=== PATIENT | female | born 1960 | race Caucasian/White ===

== ENCOUNTER 2019-08-29 07:13 | Outpatient (CLI) | payer OTHER, SELFPAY ==
--- NOTE | ~2019-08-29 | MM_ITS ---
EXAMINATION: MM screening [facility] BI w cecilia HISTORY: Screening mammogram TECHNIQUE: Craniocaudal and mediolateral oblique 3-D tomosynthesis images were obtained and synthetic 2-D images were generated. CAD analysis was submitted and interpreted. COMPARISON: Comparison to multiple prior studies sequentially, with oldest reviewed study dated 06/17. BREAST PARENCHYMAL COMPOSITION: There are scattered areas of fibroglandular density. FINDINGS: There is no evidence of suspicious mass, calcification, or architectural distortion to sugg est malignancy in either breast. There has been no suspicious interval change. IMPRESSION: 1. No mammographic evidence of malignancy. 2. Recommend routine screening mammography in one year. BI-RADS Category 1: Negative Reviewed, dictated and finalized at location A.
== END 2019-08-29 07:14 | disposition home or self-care (01) ==
LOC: ANHIMG 07:18
PROVIDERS: PCP Family Medicine Adolescent Medicine; Visit Provider Obstetrics & Gynecology
DX: Z12.31 Encounter for screening mammogram for malignant neoplasm of breast (principal)
CPT/HCPCS: 77063; 77067

== ENCOUNTER 2020-08-14 08:27 | Outpatient (CLI) | payer OTHER, SELFPAY ==
[2020-08-14 09:13] LABS: Alanine Aminotransferase 27 U/L (4-35); Albumin Level 4.3 g/dL (3.5-5.1); Alkaline Phosphatase 73 U/L (38-126); Anion Gap 6 mmol/L (8-16); Aspartate Amino Transferase 30 U/L (14-36); Bilirubin,Total 0.6 mg/dL (0.2-1.3); Blood Urea Nitrogen 17 mg/dL (7-17); Carbon Dioxide 31 mmol/L (22-30); Chloride 103 mmol/L (98-107); Cholesterol 179 mg/dL (0-200); Estimated Glomerular Filt Rate > 60; Glucose 95 mg/dL (65-105); HDL Direct 60 mg/dL; Potassium 4.4 mmol/L (3.4-5.0); Sodium 140 mmol/L (137-145); Triglycerides 155 mg/dL (<150)
[2020-08-14 09:24] LABS: LDL Cholesterol Direct 72 mg/dL
== END 2020-08-14 08:28 | disposition home or self-care (01) ==
PROVIDERS: PCP Family Medicine Adolescent Medicine; Visit Provider Physician Assistant
DX: Z13.220 Encounter for screening for lipoid disorders (principal); Z13.228 Encounter for screening for other metabolic disorders
CPT/HCPCS: 36415; 80053; 80061

== ENCOUNTER 2020-10-26 08:09 | Outpatient (CLI) | payer OTHER, SELFPAY ==
--- NOTE | ~2020-10-26 | MM_ITS ---
EXAMINATION: MM screening [facility] BI w cecilia HISTORY: Screening TECHNIQUE: Craniocaudal and mediolateral oblique 3-D tomosynthesis images were obtained and synthetic 2-D images were generated. CAD analysis was submitted and interpreted. COMPARISON: Comparison to multiple prior studies sequentially, with oldest reviewed study dated 08/16. BREAST PARENCHYMAL COMPOSITION: The breasts are almost entirely fatty. FINDINGS: There is no evidence of suspicious mass, calcification, or architectural distortion to sugg est malignancy in either breast. There has been no suspicious interval change. IMPRESSION: 1. No mammographic evidence of malignancy. 2. Recommend routine screening mammography in one year. BI-RADS Category 1: Negative Reviewed, dictated and finalized at location A.
--- NOTE | ~2020-10-26 | DEXA_ITS ---
Bone Density Report Name: Rocio Stewart Age: 59 Sex: Female Ethnicity: White Date of : 1960 Indication: postmenopausal; inflammatory bowel disease; prior fracture; hysterectomy; Referring Provider: Timi Tee Study: Bone densitometry was performed. Exam Date: October 26, 2020 Accession number: [id number] Bone Density: Region BMD T-score Z-score Classification AP Spine (L1-L4) 0.969 -0.7 0.8 Normal Femoral Neck (Left) 0.719 -1.2 0.1 Osteopenia Total Hip (Left) 0.938 0.0 1.0 Normal Total Hip Bilateral Avg 0.900 -0.3 0.7 Normal Femoral Neck (Right) 0.711 -1.2 0.1 Osteopenia Total Hip (Right) 0.861 -0.7 0.3 Normal World Health Organization criteria for BMD impression classify patients as: Normal (T-score at or above -1.0), Osteopenia (T-score between -1.0 and -2.5), or Osteoporosis (T-score at or below -2.5). 10-year Fracture Risk(1): Major Osteoporotic Fracture 12% Hip Fracture 0.8% Reported Risk Factors: [place] (), Neck BMD=0.711, BMI=33.9, previous fracture (1) FRAX(R) Version 3.08. Fracture probability calculated for an untreated patient. Fracture probability may be lower if the patient has received treatment. Previous Exams: Region Exam Age BMD T-score BMD Change BMD Change Date g/cm2 vs Baseline vs Previous AP Spine(L1-L4) 10/26/2020 59 0.969 -0.7 -0.118(-10.9%) -0.049(-4.8%)* 04/21/2018 57 1.019 -0.3 -0.069(-6.3%)# -0.069(-6.3%)# 08/16/2013 52 1.088 0.4 Total Hip(Left) 10/26/2020 59 0.938 0.0 -0.097(-9.4%)# -0.008(-0.8%) 04/21/2018 57 0.946 0.0 -0.089(-8.6%)# -0.089(-8.6%)# 08/16/2013 52 1.035 0.8 Total Hip(Right) 10/26/2020 59 0.861 -0.7 -0.090(-9.5%)# -0.007(-0.8%) 04/21/2018 57 0.867 -0.6 -0.084(-8.8%)# -0.084(-8.8%)# 08/16/2013 52 0.951 0.1 *Denotes significance at 95% confidence level, LSC for AP Spine = 0.022 g/cm2, LSC for Total Hip = 0.027 g/cm2 Clinical Information Provided by Patient: Has had a low trauma fracture Has used the following medications: Vitamin D, Calcium Has the following medical conditions: Inflammatory bowel diseases, Hysterectomy Patient maximum height was 67.5 Menopause Age: 51 No regular weight bearing exercise Onset of menses at age 11 Number of children 0 Impression: The patient has low bone mass, based on the Left Femoral Neck T-score. The patient has an estimated ten-year risk of hip fracture of 0.8% and an estima
== END 2020-10-26 08:10 | disposition home or self-care (01) ==
LOC: ANHIMG 08:09
PROVIDERS: PCP Family Medicine Adolescent Medicine; Visit Provider Obstetrics & Gynecology
DX: Z12.31 Encounter for screening mammogram for malignant neoplasm of breast (principal); Z78.0 Asymptomatic menopausal state; M85.851 Other specified disorders of bone density and structure, right thigh; M85.852 Other specified disorders of bone density and structure, left thigh
CPT/HCPCS: 77063; 77067; 77080

== ENCOUNTER 2020-12-14 04:33 | Day surgery (SDC) | payer OTHER, SELFPAY ==
[2020-12-05 12:56] VITALS: BMI 33.5
--- NOTE | 2020-12-14 09:13 | WPDANESEPPF ---
Anes - Initial Pre Proc Eval Procedure: Operation Date: 12/14/20 11:30 Proposed Procedures p Screening Colonoscopy - Delmer Sullivan MD Date/Time: 12/14/20 09:13 Surgeon: Delmer Sullivan MD Pre Op Diagnosis: neoplasm screening Patient Data Age: 60 Gender: F Height: 1.73 m Weight: 100 kg Allergies Allergy/AdvReac Type Severity Reaction Status Date / Time tetracycline Allergy Unknown upset GI Verified 12/14/20 10:25 Home Medications Medication Instructions Recorded Confirmed Type ascorbate calcium (vitamin C) 500 500 mg PO DAILY 04/23/20 12/05/20 History mg tablet guaifenesin 600 mg tablet, 600 mg PO BID PRN 04/23/20 12/05/20 History extended release 12 hr vitamin B complex 1 tablet PO DAILY 04/23/20 12/05/20 History pantoprazole 20 mg tablet,delayed 20 mg PO QAM 11/05/20 12/05/20 History release calcium carbonate-vitamin D2 1 tablet PO DAILY 12/05/20 12/05/20 History multivit with min-folic acid 1 tablet PO DAILY 12/05/20 12/05/20 History [Adult One Daily Multivitamin] Patient hx anesthesia problems: none Family hx anesthesia problems: none PMFSH Past Medical History Medical History Encounter for screening colonoscopy Obese Family History Family History Mother Hypertension Grandparent Carcinoma of colon Sibling Malignant neoplasm of prostate Father Family history of malignant neoplasm of urinary bladder Social History Social History Smoking status: Never smoker Alcohol intake: current Living arrangements: alone Spiritual care concerns: No Anes - Eval Final PreProcedure Day of Procedure 12/14/20 09:13 Patient weight: obese Heart: regular rate and rhythm Lungs: clear to auscultation and normal air movement Airway: Mallampati scale class II Neurological: alert and oriented Last oral intake: >/= 8 hours ASA classification: II Emergent: no Anesthetic plan: proceed Anesthesia type and monitoring: general GIVS Informed Consent: The patient's anesthetic plan and its attendant risks and benefits were discussed with the patient/family/POA. Questions were solicited and answers provided to the satisfaction of the patient/family/POA.
[2020-12-14 10:27] VITALS: BP 148/79; PULSE 71; RESP 16; TEMP 35.6; O2SAT 97; BMI 33.5
[2020-12-14] MEDS: LACTATED RINGERS 1,000 ML 150 ML IV CONT (10:39)
--- NOTE | 2020-12-14 11:07 | PM.HPGS ---
History of Present Illness History of Present Illness Consent: Risks, benefits, and alternatives have been discussed and questions answered. Patient agrees to proceed with procedure. Chief complaint: neoplasm screening Narrative: Rocio Stewart is a 60 year old female here for colon cancer screening. She has a tendency to have loose stools. Her gallbladder was removed about 10 years ago Review of Systems Review of Systems: All systems reviewed & are unremarkable except as noted in HPI and below PMFSH Past Medical History Medical History Encounter for screening colonoscopy Obese Family History Family History Mother Hypertension Grandparent Carcinoma of colon Sibling Malignant neoplasm of prostate Father Family history of malignant neoplasm of urinary bladder Social History Social History Smoking status: Never smoker Alcohol intake: current Living arrangements: alone Spiritual care concerns: No Meds Home Medications and Allergies Home Medications Medication Instructions Recorded Confirmed Type ascorbate calcium (vitamin C) 500 500 mg PO DAILY 04/23/20 12/05/20 History mg tablet guaifenesin 600 mg tablet, 600 mg PO BID PRN 04/23/20 12/05/20 History extended release 12 hr vitamin B complex 1 tablet PO DAILY 04/23/20 12/05/20 History pantoprazole 20 mg tablet,delayed 20 mg PO QAM 11/05/20 12/05/20 History release calcium carbonate-vitamin D2 1 tablet PO DAILY 12/05/20 12/05/20 History multivit with min-folic acid 1 tablet PO DAILY 12/05/20 12/05/20 History [Adult One Daily Multivitamin] Allergies Allergy/AdvReac Type Severity Reaction Status Date / Time tetracycline Allergy Unknown upset GI Verified 12/14/20 10:25 Vital Signs Vital Signs - 24 hr 12/14/20 10:27 Temperature 35.6 C L Pulse Rate 71 Respiratory Rate 16 Blood Pressure 148/79 H Pulse Oximetry 97 Exam Resp: Auscultation: clear to auscultation bilaterally Cardio: Rate: regular rate Rhythm: regular rhythm GI: GI Palp: Yes Soft to palpation and No Tenderness to palpation present (GI) Assessment and Plan Assessment and plan (1) Colon cancer screening: Code(s): Z12.11 - Encounter for screening for malignant neoplasm of colon Status: Acute Assessment and Plan: Colonoscopy with possible biopsy or polypectomy or cautery or injection of substances.
[2020-12-14 11:34] VITALS: BP 124/63; PULSE 66; RESP 20; O2SAT 100
[2020-12-14 11:44] VITALS: BP 145/81; PULSE 68; RESP 21; O2SAT 100
[2020-12-14 11:54] VITALS: BP 156/70; PULSE 65; RESP 17; O2SAT 100
== END 2020-12-14 12:00 | disposition home or self-care (01) ==
PROVIDERS: PCP Family Medicine Adolescent Medicine; Visit Provider Internal Medicine Gastroenterology
PROC: 0DJD8ZZ Inspection of Lower Intestinal Tract, Via Natural or Artificial Opening Endoscopic (ICD-10-PCS; CPT 45378; principal; 2020-12-14 11:30)
DX: Z12.11 Encounter for screening for malignant neoplasm of colon (principal); K63.5 Polyp of colon; K57.30 Diverticulosis of large intestine without perforation or abscess without bleeding; E66.9 Obesity, unspecified; Z90.49 Acquired absence of other specified parts of digestive tract; Z80.0 Family history of malignant neoplasm of digestive organs
CPT/HCPCS: 45380; 88305; J2704; J7120

== ENCOUNTER 2022-03-03 07:11 | Outpatient (CLI) | payer OTHER, SELFPAY ==
--- NOTE | ~2022-03-03 | MM_ITS ---
EXAMINATION: MM screening [facility] BI w cecilia HISTORY: Screening mammogram TECHNIQUE: Craniocaudal and mediolateral oblique 3-D tomosynthesis images were obtained and synthetic 2-D images were generated. CAD analysis was submitted and interpreted. COMPARISON: 10/26/2020, 08/2019, 04/21/2018 bilateral screening mammogram examinations BREAST PARENCHYMAL COMPOSITION: The breasts are almost entirely fatty. FINDINGS: There is no evidence of suspicious mass, calcification, or architectural distortion to sugg est malignancy in either breast. There has been no suspicious interval change. IMPRESSION: 1. No mammographic evidence of malignancy. 2. Recommend routine screening mammography in one year. BI-RADS Category 1: Negative Reviewed, dictated and finalized at location A. H FINISHER
== END 2022-03-03 07:12 | disposition home or self-care (01) ==
LOC: ANHIMG 07:13
PROVIDERS: PCP Family Medicine Adolescent Medicine; Visit Provider Obstetrics & Gynecology
DX: Z12.31 Encounter for screening mammogram for malignant neoplasm of breast (principal)
CPT/HCPCS: 77063; 77067

== ENCOUNTER 2022-07-16 07:28 | Outpatient (CLI) | payer OTHER, SELFPAY ==
--- NOTE | ~2022-07-16 | XR_ITS ---
Left Knee Technique: AP, lateral, and sunrise views were obtained. Clinical History: Pain Findings: No fracture or dislocation is seen. Osseous alignment is anatomic. There is mild patellofem oral compartment degenerative change. Probable small joint effusion is seen. Impression: Mild patellofemoral compartment degenerative change. Probable small joint effusion. Reviewed, dictated and finalized at [facility]. Impression: Mild patellofemoral compartment degenerative change. Probable small joint effusion.
--- NOTE | ~2022-07-16 | XR_ITS ---
Right Knee Technique: AP, lateral, and sunrise views were obtained. Clinical History: Pain Findings: No fracture or dislocation is seen. Osseous alignment is anatomic. There is mild to moderat e patellofemoral compartment degenerative change. Soft tissues are unremarkable. No joint effusion is seen. Impression: Mild to moderate patellofemoral compartment degenerative change. Reviewed, dictated and finalized at location . Impression: Mild to moderate patellofemoral compartment degenerative change.
[2022-07-16 08:45] LABS: Hemoglobin 12.9 g/dL (12.0-15.0); Mean Corpuscular HGB Conc 32.3 g/dl (32-36); Mean Corpuscular Volume 89.9 fl (80-100); Mean Platelet Volume 10.6 fl (7.4-10.4); Platelet Count Result 224 k/mm3 (150-375); Red Blood Count 4.45 M/mm3 (4.2-5.4); Red Cell Distribution Width 13.8 % (11.5-14.5); White Blood Count 5.5 K/mm3 (4.5-10.0)
[2022-07-16 09:10] LABS: Chloride 104 mmol/L (98-107)
[2022-07-16 09:22] LABS: LDL Cholesterol Direct 69 mg/dL
[2022-07-16 09:24] LABS: Free T4 Free Thyroxine 1.01 ng/mL (0.78-2.19)
[2022-07-16 09:25] LABS: Alanine Aminotransferase 26 U/L (6-35); Albumin Level 4.4 g/dL (3.5-5.1); Alkaline Phosphatase 86 U/L (38-126); Anion Gap 4 mmol/L (8-16); Aspartate Amino Transferase 28 U/L (14-36); Bilirubin,Total 0.5 mg/dL (0.2-1.3); Blood Urea Nitrogen 23 mg/dL (7-17); Calcium 9.1 mg/dL (8.4-10.2); Carbon Dioxide 31 mmol/L (22-30); Cholesterol 184 mg/dL (0-200); Estimated Glomerular Filt Rate > 60; Glucose 90 mg/dL (65-110); HDL Direct 54 mg/dL; Potassium 4.6 mmol/L (3.4-5.0); Sodium 139 mmol/L (137-145); Triglycerides 167 mg/dL (<150)
== END 2022-07-16 07:29 | disposition home or self-care (01) ==
PROVIDERS: PCP Family Medicine; Visit Provider Physician Assistant
DX: Z00.00 Encounter for general adult medical examination without abnormal findings (principal); R53.83 Other fatigue; D64.9 Anemia, unspecified; Z13.220 Encounter for screening for lipoid disorders; Z13.1 Encounter for screening for diabetes mellitus; M17.0 Bilateral primary osteoarthritis of knee
CPT/HCPCS: 36415; 73562; 80053; 80061; 84439; 84443; 85027

== ENCOUNTER 2023-08-01 07:27 | Outpatient (CLI) | payer OTHER, SELFPAY ==
[2023-08-01 08:02] LABS: Hematocrit 38.2 % (37.0-47.0); Hemoglobin 12.5 g/dL (12.0-15.0); Mean Corpuscular HGB Conc 32.7 g/dl (32-36); Mean Corpuscular Hemoglobin 28.8 pg (26-34); Mean Platelet Volume 10.5 fl (7.4-10.4); Platelet Count Result 192 k/mm3 (150-375); Red Blood Count 4.34 M/mm3 (4.2-5.4); Red Cell Distribution Width 13.5 % (11.5-14.5); White Blood Count 4.5 K/mm3 (4.5-10.0)
[2023-08-01 08:23] LABS: Alanine Aminotransferase 25 U/L (6-35); Albumin Level 4.3 g/dL (3.5-5.1); Alkaline Phosphatase 72 U/L (38-126); Anion Gap 5 mmol/L (4-12); Aspartate Amino Transferase 30 U/L (14-36); Bilirubin,Total 0.8 mg/dL (0.2-1.3); Blood Urea Nitrogen 22 mg/dL (7-17); Calcium 9.3 mg/dL (8.4-10.2); Carbon Dioxide 27 mmol/L (22-30); Chloride 106 mmol/L (98-107); Cholesterol 197 mg/dL (0-200); Estimated Glomerular Filt Rate > 60; Glucose 103 mg/dL (65-110); HDL Direct 56 mg/dL; Potassium 4.2 mmol/L (3.4-5.0); Sodium 138 mmol/L (137-145); Triglycerides 138 mg/dL (<150)
[2023-08-01 08:44] LABS: LDL Cholesterol Direct 91 mg/dL
== END 2023-08-01 07:28 | disposition home or self-care (01) ==
LOC: ANHLAB 07:28
PROVIDERS: PCP Family Medicine; Visit Provider Physician Assistant
DX: Z13.220 Encounter for screening for lipoid disorders (principal); D64.9 Anemia, unspecified; R53.83 Other fatigue; Z13.1 Encounter for screening for diabetes mellitus
CPT/HCPCS: 36415; 80053; 80061; 84439; 84443; 85027

== ENCOUNTER 2023-08-10 12:25 | Outpatient (CLI) | payer OTHER, SELFPAY ==
--- NOTE | ~2023-08-10 | MM_ITS ---
EXAMINATION: MM screening [facility] BI w cecilia HISTORY: Screening TECHNIQUE: Craniocaudal and mediolateral oblique 3-D tomosynthesis images were obtained and synthetic 2-D images were generated. CAD analysis was submitted and interpreted. COMPARISON: Comparison to multiple prior studies sequentially, with oldest reviewed study dated 07/2021. BREAST PARENCHYMAL COMPOSITION: Not dense: There are scattered areas of fibroglandular density. FINDINGS: There is no evidence of suspicious mass, calcification, or architectural distortion to sugg est malignancy in either breast. There has been no suspicious interval change. IMPRESSION: 1. No mammographic evidence of malignancy. 2. Recommend routine screening mammography in one year. BI-RADS Category 1: Negative Reviewed, dictated and finalized at location B.
--- NOTE | ~2023-08-10 | DEXA_ITS ---
? Bone Density Report? Name:? GRIS ACOSTA Patient ID:??? [id number] Age:? 62 Sex:? Female Ethnicity:? White Date of : 1960 Indication: postmenopausal; screening for osteoporosis; height loss; Referring Provider: Timi Tee Study: Bone densitometry was performed. Exam Date: August 10, 2023 Accession number: [id number] Bone Density: Region? BMD??? T-score? Z-score?? Classification AP Spine(L1-L4)? 1.042??? 0.0?1.6? Normal Femoral Neck (Left)? 0.597?? -2.3? -0.8? Osteopenia Total Hip (Left)? 0.843?? -0.8? 0.3? Normal Femoral Neck (Right)? 0.649?? -1.8? -0.4? Osteopenia Total Hip (Right)? 0.821?? -1.0? 0.2? Normal Femoral Neck Mean? 0.623?? -2.0? -0.6? Osteopenia Total Hip Mean? 0.832?? -0.9? 0.2? Normal World Health Organization criteria for BMD impression classify patients as: Normal (T-score at or above -1.0), Osteopenia (T-score between -1.0 and -2.5), or Osteoporosis (T-score at or below -2.5). 10-year Fracture Risk(1): Major Osteoporotic Fracture? 11% Hip Fracture? 1.7% Reported Risk Factors: [place] (), Neck BMD=0.597, BMI=34.5 (1) FRAX? Version 3.08. Fracture probability calculated for an untreated patient. Fracture probability may be lower if the patient has received treatment. Clinical Information Provided by Patient: Has used the following medications: Vitamin D, Calcium Patient maximum height was 68 Menopause Age: 49 Drinks caffeinated beverages Onset of menses at age 12 Number of children 0 Impression: The patient has low bone mass, based on the Left Femoral Neck T- score. Discussion: BONE DENSITY IS LOW AT ONE OR MORE SKELETAL SITES. This patient's lowest T-score is low at one or more skeletal sites.? It meets the World Health Organization's (WHO) criteria for ?low bone mass?? (T-score between -1.0 and -2.5).? The patient's 10-year risk of fracture as calculated by FRAX is less than the threshold where pharmacological therapy is recommended by the National Osteoporosis Foundation (NOF).? However, all treatment decisions require clinical judgment and consideration of individual patient factors, including patient preferences, comorbidities, previous drug use, risk factors not captured in the FRAX model (e.g., frailty, falls, vitamin D deficiency, increased bone turnover, interval significant decline in bone density) and possible under or overestimation of fracture risk by FRAX. The patient should follow a healthful lifestyle (good nutrition with adequate calcium and vitamin D, and appropriate weight-bearing exercise). Follow-Up: Consider repeating this study in 2 to 3 years to reassess this patient's status, or sooner if there is some new clinical indication. Reported by: Dr. Kalyan Rodriguez on 08/11/2023 9:38:00 AM. MAGDALENA
== END 2023-08-10 12:26 | disposition home or self-care (01) ==
LOC: CHSIMG 12:26
PROVIDERS: PCP Family Medicine; Visit Provider Obstetrics & Gynecology
DX: Z12.31 Encounter for screening mammogram for malignant neoplasm of breast (principal); Z78.0 Asymptomatic menopausal state; M85.89 Other specified disorders of bone density and structure, multiple sites
CPT/HCPCS: 77063; 77067; 77080

== ENCOUNTER 2024-03-08 11:50 | Outpatient (CLI) | payer OTHER, SELFPAY ==
--- NOTE | 2024-03-08 12:59 | ECG_ITS ---
Test Date: 2024-03-08 13:18:24 Measurements Intervals [place] Rate: 70 P: 0 AL: 166 QRS: 17 QRSD: 107 T: 5 QT: 397 QTc: 428 Interpretive Statements SINUS RHYTHM LEFT VENTRICULAR HYPERTROPHY BORDERLINE R WAVE PROGRESSION, ANTERIOR LEADS BASELINE ARTIFACT- I, III, AVR, AVL, AVF, V1-V6 BORDERLINE ECG No previous ECG available for comparison Electronically Signed On 03-08-2024 14:22:51 [employer]PER[employer]OR [employer] by Jayro Mariano D.O.
[2024-03-08 13:28] LABS: Basophils Absolute Auto 0.1 K/mm3 (0.0-0.1); Basophils Percent Auto 0.9 % (0.2-1.2); Eosinophils Absolute Auto 0.1 K/mm3 (0-0.3); Eosinophils Percent Auto 1.9 % (0-4.4); Hematocrit 39.1 % (37.0-47.0); Hemoglobin 12.9 g/dL (12.0-15.0); Immature Granulocyte Absolute 0.02 K/mm3 (0.00-0.031); Immature Granulocyte Percent A 0.3 % (0-0.5); Lymphocytes Absolute Auto 1.77 K/mm3 (0.9-3.2); Lymphocytes Percent Auto 25.6 % (18.3-44.2); Mean Corpuscular Hemoglobin 29.2 pg (26-34); Mean Corpuscular Volume 88.5 fl (80-100); Mean Platelet Volume 10.4 fl (7.4-10.4); Monocytes Absolute Auto 0.5 K/mm3 (0.1-0.6); Monocytes Percent Auto 6.8 % (2.6-8.5); Neutrophils Absolute Auto 4.5 K/mm3 (1.3-6.7); Neutrophils Percent Auto 64.5 % (45.5-73.1); Platelet Count Result 227 k/mm3 (150-375); Red Blood Count 4.42 M/mm3 (4.2-5.4); Red Cell Distribution Width 13.7 % (11.5-14.5); White Blood Count 6.9 K/mm3 (4.5-10.0)
[2024-03-08 13:38] LABS: Potassium 4.1 mmol/L (3.4-5.0)
[2024-03-08 13:39] LABS: Prothrombin Time 13.9 Seconds (11.1-14.7)
[2024-03-08 13:40] LABS: Alanine Aminotransferase 20 U/L (6-35); Albumin Level 4.3 g/dL (3.5-5.1); Alkaline Phosphatase 78 U/L (38-126); Anion Gap 6 mmol/L (4-12); Aspartate Amino Transferase 25 U/L (14-36); Bilirubin,Total 0.4 mg/dL (0.2-1.3); Blood Urea Nitrogen 22 mg/dL (7-17); Calcium 9.1 mg/dL (8.4-10.2); Carbon Dioxide 28 mmol/L (22-30); Chloride 104 mmol/L (98-107); Estimated Glomerular Filt Rate > 60; Glucose 106 mg/dL (65-110); Partial Thromboplastin Time 26.3 Seconds (22.3-36.8); Sodium 138 mmol/L (137-145)
== END 2024-03-08 11:51 | disposition home or self-care (01) ==
PROVIDERS: PCP Family Medicine; Visit Provider Urology
DX: Z01.818 Encounter for other preprocedural examination (principal); N81.4 Uterovaginal prolapse, unspecified
CPT/HCPCS: 36415; 80053; 85025; 85610; 85730; 86850; 86900; 86901; 93005

== ENCOUNTER 2024-03-14 00:18 | Day surgery (SDC) | payer OTHER, SELFPAY ==
[2024-03-08 12:14] VITALS: BP 149/68; PULSE 73; RESP 16; TEMP 36.9; O2SAT 95; BMI 33.7
--- NOTE | 2024-03-08 12:37 | PC.NURSE ---
Report to the Outpatient Waiting Room, entrance under the green pavilion located off [facility], at time ___10:00AM____ on date ____03/14/24___. Planned Procedure Time: ___12:00PM .? Time changes happen often and if your time is changed the preop area will call you the afternoon before. - You and your visitor will be asked to self-screen and do not enter if you have any COVID symptoms. Please call surgeon if you need to reschedule. - A mask is optional within the hospital at this time. Patients may have clear liquids (water, carbonated beverages, clear teas, apple juice) until 3 hours prior to surgery with a maximum of 20 ounces. - No food from midnight until time of surgery and no smoking. Take only the following medications with a SIP of water on the morning of surgery: ___NONE DO NOT STOP ANY OF YOUR OTHER PRESCRIPTION MEDICATIONS PRIOR TO SURGERY EXCEPT THE FOLLOWING Medications to discontinue per physician HOLD ALL VITAMINS/SUPPLEMENTS 7 DAYS PRE-OP PER DR SHORE Date to take last dose 03/06/24 Please no make-up, nail canadian, hairspray, perfume, deodorant, or body powder the day of surgery.? No jewelry (including any body piercings) or valuables the day of surgery, leave them at home.? Please take a shower or bath the night before, or the morning of, surgery with an antibacterial soap.? Wear comfortable, loose fitting clothing.? - Jewelry must be removed prior to entering the operating room.? Rings and piercings that are not removed may be cut off. - The hospital will not accept responsibility for valuables.? - Please leave all valuables, including medications, at home the day of surgery. If you are going home after surgery, a licensed pile driver operator must drive you home.? - NO public transportation without another adult if you receive anesthesia. - We recommend that an adult stay with you for 24 hours following discharge. - We also recommend that you do not drive, make important decision, drink alcoholic beverages, or take any drugs that were not prescribed by your health care provider for at least 24 hours after your discharge time. Follow any additional instructions given to you from your surgeon. Telephone instructions given to ____PATIENT and asked if any additional questions and then verbalized understanding. Patient advised to call surgeon office or pre surgery nurse liaison [phone] if any additional questions.
--- NOTE | 2024-03-13 13:55 | P.HP_ITS ---
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 History of tonsillectomy Family History Family History Mother Hypertension Heart failure Grandparent Carcinoma of colon Sibling Malignant neoplasm of prostate Father Family history of malignant neoplasm of urinary bladder Social History Social History Smoking status: Never smoker Alcohol intake: current Alcohol use details: SELDOM; SOCIALLY Substance use: never Substance use type: does not use Do You Feel Safe in your Home?: Yes Lack of Transportation: No Lack of Food: Never True Current Housing: I Have Housing Concerned About Future Housing: No Difficulty Paying Gas/Electric Bills: No Difficulty Paying for Meds: No Currently Unemployed: No Education: Bachelor's Degree Difficulty w/ Childcare or Family Care: No Living arrangements: with family Additional living arrangements comments: [place] Spiritual care concerns: No Meds Home Medications and Allergies Home Medications Medication Instructions Recorded Confirmed Type guaifenesin 600 mg tablet, 600 mg PO BID PRN secretions 04/23/20 03/08/24 History extended release 12 hr (Mucinex) calcium carb-ergocalciferol (vit 2 tablet PO DAILY 12/05/20 03/08/24 History D2) 500 mg (1,250 mg)-200 unit tablet multivitamin with minerals-folic 1 tablet PO DAILY 12/05/20 03/08/24 History acid 0.4 mg tablet (Adult One Daily Multivitamin) melatonin 5 mg capsule 5 mg PO HS 05/02/21 03/08/24 History vit A 7,160 unit-vit C 113 mg-vit 1 tablet PO DAILY 05/29/22 03/08/24 History E 100 [id number] tablet vitamin B complex 1 cap PO DAILY 05/29/22 03/08/24 History pantoprazole 40 mg tablet,delayed 40 mg PO DAILY #90 tabs 06/18/23 03/08/24 Rx release mirabegron 25 mg tablet,extended 25 mg PO DAILY #90 tabs 11/12/23 03/08/24 Rx release 24 hr (Myrbetriq) scopolamine base 1 mg over 3 days 1 patch transdermal Q3D #1 ea 03/01/24 03/08/24 Rx transdermal patch ascorbic acid (vitamin C) 1,000 mg 1 g PO DAILY 03/08/24 03/08/24 History capsule biotin 2,500 mcg tablet 2,500 mcg PO DAILY 03/08/24 03/08/24 History meclizine 25 mg capsule 25 mg PO DAILY PRN Vertigo 03/08/24 03/08/24 History Allergies Allergy/AdvReac Type Severity Reaction Status Date / Time tetracycline AdvReac Unknown upset GI Verified 03/08/24 13:13 Exam Narrative: Anterior +3 [place] +1 + urethral mobility Assessment and Plan Assessment and plan (1) Uterine prolapse: Code(s): N81.4 - Uterovaginal prolapse, unspecified Status: Acute (2) ELISA (stress urinary incontinence, female): Code(s): N39.3 - Stress incontinence (female) (male) Status: Acute Plan Robotic Sacral colpopexy, urethrqal sling
[2024-03-14] VITALS (9 sets, daily range): BP systolic 93–143; BP diastolic 57–84; PULSE 64–92; RESP 14–20; TEMP 36.3–37.6; O2SAT 91–100
--- NOTE | 2024-03-14 04:41 | WPDHPUPDATE1 ---
History and Physical Update Update Date/Time: 03/14/24 04:41 History and Physical has been reviewed, including an updated exam of the patient. There are NO changes in the patient's condition. Risks, benefits, and alternatives have been discussed and questions answered. Patient agrees to proceed with procedure.
--- NOTE | 2024-03-14 10:44 | WPDHPUPDATE1 ---
History and Physical Update Update Date/Time: 03/14/24 10:44 History and Physical has been reviewed, including an updated exam of the patient. There are NO changes in the patient's condition. Risks, benefits, and alternatives have been discussed and questions answered. Patient agrees to proceed with procedure.
[2024-03-14] MEDS: ACETAMINOPHEN 500 MG TABLET 1000 MG PO (11:10)
[2024-03-14] MEDS: LACTATED RINGERS 1,000 ML 30 ML IV CONT ×2 (11:10→15:01)
--- NOTE | 2024-03-14 11:49 | P.PNAN_ITS ---
Anes - Initial Pre Proc Eval Procedure: Operation Date: 03/14/24 12:00 Proposed Procedures p Robotic Sacrocolpopexy, Urethral Sling - John Alex MD s Robotic Assisted Supracervical Hysterectomy with Possible Bilateral Salpingo- oophorectomy - Timi Tee MD Date/Time: 03/14/24 11:49 Surgeon: John Alex MD Pre Op Diagnosis: uterine prolapse, stress incont Patient Data Age: 63 Gender: F Height: 1.7 m Weight: 97.3 kg Last Vital Signs Temp 36.6 C 03/14/24 11:10 Pulse 64 03/14/24 11:10 Resp 14 03/14/24 11:10 BP 134/61 03/14/24 11:10 Pulse Ox 98 03/14/24 11:10 O2 Del Method Room Air 03/14/24 11:10 Allergies Allergy/AdvReac Type Severity Reaction Status Date / Time tetracycline AdvReac Unknown upset GI Verified 03/14/24 11:27 Home Medications Medication Instructions Recorded Confirmed Type guaifenesin 600 mg tablet, 600 mg PO BID PRN secretions 04/23/20 03/08/24 History extended release 12 hr (Mucinex) calcium carb-ergocalciferol (vit 2 tablet PO DAILY 12/05/20 03/08/24 History D2) 500 mg (1,250 mg)-200 unit tablet multivitamin with minerals-folic 1 tablet PO DAILY 12/05/20 03/08/24 History acid 0.4 mg tablet (Adult One Daily Multivitamin) melatonin 5 mg capsule 5 mg PO HS 05/02/21 03/08/24 History vit A 7,160 unit-vit C 113 mg-vit 1 tablet PO DAILY 05/29/22 03/08/24 History E 100 aplk-balf-dzqyqz tablet vitamin B complex 1 cap PO DAILY 05/29/22 03/08/24 History pantoprazole 40 mg tablet,delayed 40 mg PO DAILY #90 tabs 06/18/23 03/08/24 Rx release mirabegron 25 mg tablet,extended 25 mg PO DAILY #90 tabs 11/12/23 03/08/24 Rx release 24 hr (Myrbetriq) scopolamine base 1 mg over 3 days 1 patch transdermal Q3D #1 ea 03/01/24 03/08/24 Rx transdermal patch ascorbic acid (vitamin C) 1,000 mg 1 g PO DAILY 03/08/24 03/08/24 History capsule biotin 2,500 mcg tablet 2,500 mcg PO DAILY 03/08/24 03/08/24 History meclizine 25 mg capsule 25 mg PO DAILY PRN Vertigo 03/08/24 03/08/24 History docusate sodium 100 mg capsule 100 mg PO BID #40 caps 03/14/24 Rx (Colace) hydrocodone 5 mg-acetaminophen 325 1 tablet PO Q6H PRN pain #20 tabs 03/14/24 Rx mg tablet Patient hx anesthesia problems: none Family hx anesthesia problems: none Results Review: All pre-operative results and documents have been reviewed as part of the pre- operative evaluation. 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 History of tonsillectomy Family History Family History Mother Hypertension Heart failure Grandparent Carcinoma of colon Sibling Malignant neoplasm of prostate Father Family history of malignant neoplasm of urinary bladder Social History Social History Smoking status: Never smoker Alcohol intake: current Alcohol use details: SELDOM; SOCIALLY Substance use: never Substance use type: does not use Do You Feel Safe in your Home?: Yes Lack of Transportation: No Lack of Food: Never True Current Housing: I Have Housing Concerned About Future Housing: No Difficulty Paying Gas/Electric Bills: No Difficulty Paying for Meds: No Currently Unemployed: No Education: Bachelor's Degree Difficulty w/ Childcare or Family Care: No Living arrangements: with family Additional living arrangements comments: [place] Spiritual care concerns: No Anes - Eval Final PreProcedure Day of Procedure 03/14/24 11:49 Patient weight: obese Heart: regular rate and rhythm Lungs: clear to auscultation Airway: Mallampati scale class III Neurological: alert and oriented Last oral intake: >/= 8 hours ASA classification: III Emergent: no Anesthetic plan: proceed Anesthesia type and monitoring: general ETT and standard monitoring Results Review: All pre-operative results and documents have been reviewed as part of the pre- operative evaluation. Informed Consent: The patient's anesthetic plan and its attendant risks and benefits were discussed with the patient/family/POA. Questions were solicited and answers provided to the satisfaction of the patient/family/POA.
[2024-03-14] MEDS: ceFAZolin 2 GM/D5W 50 ML 2 GM/50 ML BAG IVPB (12:10)
[2024-03-14] MEDS: metroNIDAZOLE 500 MG/ISO 100ML 500 MG/100 ML BAG 100 MG IVPB ×2 (12:20→19:47)
--- NOTE | 2024-03-14 13:21 | P.OP_ITS ---
Procedure Note - Detailed Date of Procedure 03/14/24 Pre-op Diagnosis uterine prolapse, stress incont Post-op Diagnosis Same Procedure Performed Laparoscopic robotic assisted supracervical hysterectomy Surgeon Timi Tee MD Home Service Consultant [place] Anesthesia General Indications incomplete uterine prolapse Findings uterus normal size. There were no ovaries or fallopian tubes present. There was dense adhesion of the colon to the left sidewall some of the adhesions were lysed to help with mobility and visualization of the left side of the uterus. No tube or ovary identified on either side. Description of Procedure After informed consent was obtained patient was taken to operating room and general endotracheal anesthesia was administered. She was placed in lithotomy position and prepped and draped in sterile fashion. At this time Dr. Alex was placing robotic ports see his part of the op note. Attention was turned to the vagina speculum inserted single-tooth tenaculum placed on anterior lip of the cervix an acorn uterine manipulator was placed into the cervical canal. Attention was turned to the surgery console. Adhesions of the colon to the left posterior uterus were lysed. Adhesions were dense but lyse the adhesions that allowed for mobilization of the uterus. No adnexal tissue identified on either side. Attention was turned to the right round ligament which was ligated with vessel sealer the anterior leaf of the broad ligament was dissected anteriorly. Vesicouterine peritoneum was dissected from the lower uterine segment. And the upper cervix. The right ascending uterine vessels and the uterine arteries were ligated. Attention was turned to the left round ligament which was ligated with vessel sealer and the anterior leaf of the broad ligament was dissected anteriorly. The rest of the vesicouterine peritoneum was dissected from the lower uterine segment upper cervix. The ascending uterine vessels and uterine arteries on the left were ligated. The uterus was then amputated from the cervix using cautery. Hemostasis obtained with cautery at the cervix. The uterus was placed into the Endo-Catch bag. At this time Dr. Alex resumed his portion of the procedure. Estimated Blood Loss 10 Drains No Packing No Pathology Yes ( uterus and cervix) Complications No immediate complications Condition Stable Disposition Other [facility] Billing Surgery - Charge Forward: Surgery Billing
[2024-03-14] MEDS: BUPIVACAINE/EPINEPHRINE 0.5% 50 ML VIAL 35 ML INFILTRATE (14:38)
--- NOTE | 2024-03-14 15:01 | P.OP_ITS ---
Procedure Note - Detailed Date of Procedure 03/14/24 Pre-op Diagnosis uterine prolapse, stress incontinence Post-op Diagnosis Same Procedure Performed Robotic assisted laparoscopic sacral colpopexy Urethral sling Cystoscopy Surgeon John Alex MD Anesthesia General Indications A woman with uterine prolapse as well as stress incontinence. She desires surgical correction. She is here for the above. She understands risks of bleeding, infection, diskitis, damage to surrounding organs, bowel injury, bowel obstruction, mesh related complications including exposure and extrusion, postoperative voiding dysfunction including incontinence and retention, need for ancillary procedures, dyspareunia, recurrence of prolapse, and other perioperative intraoperative postoperative complications. She agrees to proceed. Findings See below Description of Procedure She was correctly identified. Informed consent obtained. She from the operating room. She was given general anesthesia. She was given appropriate perioperative antibiotics. She was placed a low lithotomy position. Pressure points were padded. A time-out performed. I marked out the skin 3 fingerbreadths cephalad to the umbilicus. I anesthet ized the skin. I incised the skin. I dissected down to the fascia. I grasped the fascia with Arleth clamps. I entered the fascia sharply in a Reeves type technique. I placed sutures for later fascial closure. I placed a midline trocar. I examined the abdomen. There is no sign of any injury. Under direct vision I placed 2 additional trocars in the right upper quadrant and 2 additional trocars the left upper quadrant. She was placed in steep Trendelenburg. The robot was docked. Her interior design professional completed their portion of the procedure. Please see that operative report for details. I then sat at the console. The Sizer in the vagina created plane on the anterior and posterior vaginal wall. I took great care not to injure the vagina, bladder, or rectum. I introduced the mesh into the abdomen. I sewed the anterior leaflet of mesh on the anterior vaginal wall. I sewed the posterior leaflet of mesh on the posterior vaginal wall. This was done with several sutures of 2 0 Cossayuna-Marck. The colon was adhesed laterally so I did not have to reflect it. I opened the posterior peritoneum over the sacral promontory. I carried this into the cul-de-sac. I was able to easily visualize the right ureter and keep it lateral. I freed up the edges for later retroperitonealization. I located the anterior longitudinal ligament the sacrum. I cleaned off all fatty tissues. I then tensioned my mesh appropriately. I did a vaginal exam the bedside. I assured prolapse reduction without undue tension. I then sewed the proximal leaflet of mesh onto the anterior longitudinal ligament of the sacrum with 4l sutures of 2 0 Cossayuna-Marck. I then used a 2 0 Monocryl to completely and meticulously retroperitonealized all mesh. Again the right ureter was kept laterally. The specimen was then removed. All ports removed. Fascia was tied down. Additional sutures placed for close the fascia. Skin was closed with Monocryl and surgical glue. She was repositioned and prepped for urethral sling. I marked out the inner thigh incisions. I anesthetized the skin and made the incisions. I then anesthetized the anterior vaginal wall at the mid urethra. I made a 1 cm incision. I dissected out laterally taking great care not to injure the refilled vaginal wall. I passed the helical trocars. I did this 1st on the left and then on the right. This was done from the thigh incision towards the vaginal incision. Sling was connected to the trocars and brought out the thigh incision. I tensioned the sling appropriately. I cut and the plastic sheaths. I closed the incision with 2 0 Vicryl. I then performed cystoscopy. There was no tumors or surgical artifact. Bilateral ureteral patency was documented by placing a guidewire up both ureters. It went without resistance bilaterally. Yellow urine was then seen to come from the ureters. There is no surgical artifact in the bladder or urethra. I cut the excess sling material. Close incision with glue. She was awakened and transferred to PACU in stable condition. Implants Sacral colpopexy mesh Urethral sling Estimated Blood Loss 50 Packing No Pathology None sent Complications No immediate complications Condition Stable Disposition PACU
[2024-03-14] MEDS: fentaNYL CITRATE INJ (*CRX) 100 MCG/2 ML VIAL 25 MCG IV PUSH ×2 (15:45→16:00)
--- NOTE | 2024-03-14 16:35 | ADMGEN ---
This patient, Rocio Stewart, was admitted to OB 2nd Floor Room 283-00. Patient/family oriented to hospital policies and general routines including ID bracelet, bed and alarms, visiting hours, pain management, procedures, bathroom and other care routines, personal items, smoking policy, room service/diet, and visiting hours. Information on how to activate the Rapid Response Team has been discussed. Patient/Family are encouraged to report perceived risks to care and to ask questions if they do not understand what they are told or what they should do.
[2024-03-14] MEDS: KCL 20 MEQ/D5/0.45% SOD CHL 1,000 ML 100 ML IV CONT (17:20)
[2024-03-14] MEDS: MELATONIN 5 MG TABLET PO (20:54)
[2024-03-14] MEDS: ceFAZolin 1 GM/NS 50 ML 1 GM/50 ML BAG IVPB (20:55)
[2024-03-15] MEDS: HYDROcodone/acetaminophen (*CRX) 5-325 MG TABLET 1 TAB PO (00:01)
[2024-03-15] MEDS: KETOROLAC 15 MG/ML VIAL (*BKC) IV PUSH (00:02)
[2024-03-15 00:07] VITALS: BP 160/68; PULSE 72; RESP 18; TEMP 37.4; O2SAT 99
[2024-03-15 00:25] VITALS: BP 122/59; PULSE 75
[2024-03-15] MEDS: metroNIDAZOLE 500 MG/ISO 100ML 500 MG/100 ML BAG 100 MG IVPB (03:41)
[2024-03-15] MEDS: SODIUM CHLORIDE 0.9% IV 250 ML 100 ML (03:41)
[2024-03-15 03:46] VITALS: BP 119/49; PULSE 69; RESP 16; TEMP 36.7; O2SAT 95
[2024-03-15] MEDS: ceFAZolin 1 GM/NS 50 ML 1 GM/50 ML BAG IVPB (04:50)
[2024-03-15] MEDS: PANTOPRAZOLE 40 MG TABLET PO (07:26)
[2024-03-15] MEDS: ENOXAPARIN 30 MG/0.3 ML SYRINGE SUB-Q (07:26)
[2024-03-15] MEDS: CEPHALEXIN 500 MG CAPSULE PO (07:26)
[2024-03-15] MEDS: DOCUSATE SODIUM 100 MG CAPSULE PO (07:26)
[2024-03-15 08:10] VITALS: BP 149/61; PULSE 62; RESP 18; TEMP 36.8; O2SAT 99
--- NOTE | 2024-03-15 09:29 | WPDANESPN ---
Anes - Prog Note Post-Op Date/Time: 03/15/24 09:29 Cardiovascular status: normal Respiratory status: normal Airway patency: baseline Mental status: baseline Post-Op hydration status: normal Vital Signs: Last Vital Signs Temp 36.8 C 03/15/24 08:10 Pulse 62 03/15/24 08:10 Resp 18 03/15/24 08:10 BP 149/61 H 03/15/24 08:10 Pulse Ox 99 03/15/24 08:10 O2 Del Method Room Air 03/14/24 16:35 O2 Flow Rate 8 03/14/24 15:15 Pain Score (VAS): 05/06 I/O: Intake & Output 03/14/24 03/15/24 03/15/24 23:59 07:59 15:59 Intake Total 150 766.7 Output Total 325 Balance -175 766.7 Post-procedural complaints: none Patient Feedback: Patient satisfied with anesthetic care.
--- NOTE | 2024-03-15 13:05 | P.PNOB_ITS ---
CLINICAL STAFF ANESTHESIOLOGIST - A/P Assessment and plan (1) Status post hysterectomy: Code(s): Z90.710 - Acquired absence of both cervix and uterus Status: Acute Assessment and Plan: she is doing well. Discharge today per Dr. Alex's orders. Discharge precautions discussed. Postoperative Procedures: Procedures Operation Date: 03/14/24 12:00 Actual Procedure Side Surgeon p Robotic Sacrocolpopexy, Urethral Sling Not Applicable John Alex MD s Robotic Assisted Supracervical Hysterectomy Not Applicable Timi Tee MD Time Spent With Patient Time: Total time spent is greater than 50% in coordination of care (as documented) at patient's floor/unit and/or counseling patient: Time with patient: less than 15 minutes CLINICAL STAFF ANESTHESIOLOGIST- PN:Subj Post-Op Subjective Date/time seen: 03/15/24 13:05 Interval history: She reports adequate pain control. She has walked around the room without problems no chest pain or shortness of breath. Denies leg pain. Has not had regular food yet. tolerated liquids. Exam Const: General: comfortable and no acute distress Eyes: General: appearance normal, both eyes and all related structures Resp: Effort & Inspection: normal respiratory effort Auscultation: clear to auscultation bilaterally Cardio: Rate: regular rate Rhythm: regular rhythm GI: Other: Incisions intact mild bruising surrounding incisions no drainage no rebound nontender Neuro: General: oriented to person, oriented to place and oriented to time Extrem: General: normal to inspection, no calf tenderness and no calf tenderness bilaterally CLINICAL STAFF ANESTHESIOLOGIST - PN: Obj Data Vital Signs Vital Signs: Vital Signs - 24 hr 03/14/24 15:01 03/14/24 15:15 03/14/24 15:30 Temperature 97.3 F L Pulse Rate 84 79 82 Respiratory Rate 18 16 20 Blood Pressure 138/63 137/68 143/62 H Pulse Oximetry 99 100 96 Oxygen Delivery Simple Face Mask Simple Face Mask Room Air Oxygen Flow Rate 8 8 03/14/24 15:45 03/14/24 16:00 03/14/24 16:15 Temperature 97.5 F L Pulse Rate 84 80 78 Respiratory Rate 15 15 15 Blood Pressure 142/60 H 138/84 143/74 H Pulse Oximetry 91 95 92 Oxygen Delivery Room Air Room Air Room Air Oxygen Flow Rate 03/14/24 16:35 03/14/24 16:35 03/14/24 19:45 Temperature 97.9 F 99.7 F H Pulse Rate 82 92 Respiratory Rate 14 14 Blood Pressure 127/57 L 93/70 L Pulse Oximetry 93 93 Oxygen Delivery Room Air Oxygen Flow Rate 03/15/24 00:07 03/15/24 00:25 03/15/24 03:46 Temperature 99.3 F 98.1 F Pulse Rate 72 75 69 Respiratory Rate 18 16 Blood Pressure 160/68 H 122/59 L 119/49 L Pulse Oximetry 99 95 Oxygen Delivery Oxygen Flow Rate 03/15/24 08:10 Temperature 98.3 F Pulse Rate 62 Respiratory Rate 18 Blood Pressure 149/61 H Pulse Oximetry 99 Oxygen Delivery Oxygen Flow Rate Intake/Output Intake/Output: Intake & Output 03/12/24 03/13/24 03/14/24 03/15/24 23:59 23:59 23:59 23:59 Intake Total 400 766.7 Output Total 525 Balance -125 766.7
== END 2024-03-15 09:59 | disposition home or self-care (01) ==
LOC: ANHSURGERY 10:05 → ANHOB2 16:31
PROVIDERS: Obstetrics & Gynecology; PCP Family Medicine; Visit Provider Urology
PROC: (CPT 57425; principal; 2024-03-14 12:00)
PROC: 0UT94ZZ Resection of Uterus, Percutaneous Endoscopic Approach (ICD-10-PCS; CPT 57425; 2024-03-14 12:00)
DX: N81.2 Incomplete uterovaginal prolapse (principal); N39.3 Stress incontinence (female) (male); N73.6 Female pelvic peritoneal adhesions (postinfective); K21.9 Gastro-esophageal reflux disease without esophagitis; E66.9 Obesity, unspecified; Z68.33 Body mass index [BMI] 33.0-33.9, adult
CPT/HCPCS: 58541; 57425; 57288; S2900 ×2; 88307; A9270; C1771; C1781; J0360; J0690; J1100; J1171; J1200; J1650; J1836; J1885; J2003; J2250; J2405; J2704; J3010; J3480; J7050; J7120

== ENCOUNTER 2024-08-16 08:03 | Outpatient (CLI) | payer OTHER, SELFPAY ==
--- NOTE | ~2024-08-16 | MM_ITS ---
EXAMINATION: MM screening ruby BI w cecilia HISTORY: Screening TECHNIQUE: Craniocaudal and mediolateral oblique 3-D tomosynthesis images were obtained and synthetic 2-D images were generated. CAD analysis was submitted and interpreted. COMPARISON: Comparison to multiple prior studies sequentially, with oldest reviewed study dated 09/2016. BREAST PARENCHYMAL COMPOSITION: Not dense: There are scattered areas of fibroglandular density. FINDINGS: There is no evidence of suspicious mass, calcification, or architectural distortion to sugg est malignancy in either breast. There has been no suspicious interval change. IMPRESSION: 1. No mammographic evidence of malignancy. 2. Recommend routine screening mammography in one year. BI-RADS Category 1: Negative Reviewed, dictated and finalized at location A.
--- OUTSIDE RECORDS SUMMARY | 2024-08-16 08:11 | XMS_ITS | Clinical Summary ---
Author Organization [facility] Address [address] [place] [address] Care Team Providers Care Aircraft Fuselage Framer Name Role Phone Polo Busby MD Primary Care Provider + Source Comments [facility],non-[facility] Affiliates and Associated Physician Practices is amultiple site organization consisting of ambulatory clinics and hospital sitesin [place], [place], [place] and [place]. This disclosure is being madepursuant to the Care Everywhere program and may not contain all information available regarding this patient. Last updated 18.[facility] [employer] Allergies Active Allergy Reactions Criticality Noted Date Comments Tetracycline Nausea and/or Vomiting 08/13/2015 Medications * Be aware that medications may not be up to date on this document. Alwaysverify current medications with the patient. [place]-3 Fatty Acids (FISH OIL DELAYED RELEASE) 1000 MG capsule Take 1 Cap by mouth daily with food Active Calcium Carbonate-Vitam in D (CALCIUM + D PO) Take 2 Tabs by mouth Active Multiple Vitamins-Minera ls (MULTIVITAL PO) Active OtherIndication s:eye vitamin 1 Tab once daily Reasons: eye vitamin Active Vitamin Mixture (VITAMIN E COMPLETE PO) Take 1 Cap by mouth once daily Active oxyCODONE-aceta minophen (PERCOCET) 5-325 MG tablet Take 1 Tab by mouth every 6 hours as needed for Pain 30 Tab 0 08/16/2015 Active ibuprofen (MOTRIN) 600 MG tablet Take 1 Tab by mouth every 6 hours as needed for Pain 60 Tab 0 08/16/2015 Active docusate sodium (COLACE) 100 MG capsule Take 1 Cap by mouth 2 times daily 60 Cap 0 08/16/2015 Active Active Problems Problem Noted Date Diagnosed Date Diverticular disease 08/13/2015 Bulky or enlarged uterus 08/13/2015 Irregular bleeding 08/13/2015 Mass of pelvis 08/13/2015 Cyst of left ovary 08/13/2015 Social History Tobacco Use Types Packs/Day Years Used Date Smoking Tobacco: Never Tobacco Cessation:Counseling Given: No Alcohol Use Standard Drinks/Week Comments Yes 0 (1 standard drink = 0.6 oz pur e alcohol) Comments No Sex and Gender Information Value Date Recorded Sex Assigned at Not on file Legal Sex Female 2:04 PM CDT Gender Identity Not on file Sexual Orientation Not on file Last Filed Vital Signs Vital Sign Reading Time Taken Comments Blood Pressure 122/80 08/28/2015 12:41 PM CDT Pulse 80 08/16/2015 6:41 PM CDT Temperature 36.7 C (98.1 F) 08/16/2015 6:41 PM CDT Respiratory Rate 16 08/16/2015 6:41 PM CDT Oxygen Saturation 98% 08/16/2015 6:41 PM CDT Inhaled Oxygen Concentration - - Weight 97.5 kg (215 lb) 08/28/2015 12:41 PM CDT Height 172.7 cm (5' 8 ) 08/28/2015 12:41 PM CDT Body Mass Index 32.69 08/28/2015 12:41 PM CDT Plan of Treatment Health Maintenance Due Date Last Done Comments COLOGUARD (AGES 45-75) - COL ON CA SCREENING 1959 COLON MONITORING 1959 COLONOSCOPY - COLON CA SCREENING 1959 CT COLONOGRAPHY - COLON CA SCREENING 1959 Colorectal Cancer Screening 1959 FIT - COLON CA SCREENING 1959 FLEX SIG - COLON CA SCREENING 1959 LIPID TESTING 1959 MAMMOGRAM 1959 PAP SMEAR 1959 HIV SCREENING 11/26/1974 HEPATITIS C SCREENING 11/22/1977 DTAP/TDAP/TD VACCINES (1 - Tdap) 11/26/1978 PNEUMOCOCCAL VACCINE 50+ (1 of 1 - PCV) 11/26/2009 ZOSTER VACCINE (1 of 2) 11/26/2009 COVID-19 VACCINE (1 - 2023-2 5 season) 2023 DEPRESSION SCREENING 04/27/2024 INFLUENZA VACCINE (Season Ended) 2024 Respiratory Syncytial Virus (RSV) Vaccine Pt: or over 60 yrs (1 - 1-dose 75+ series) 11/26/2034 HEPATITIS B VACCINE Aged Out No longe r eligible based on patient's age to complete this topic HIB VACCINE Aged Out No longer eligi ble based on patient's age to complete this topic HPV VACCINE Aged Out No longer eligi ble based on patient's age to complete this topic MENINGOCOCCAL (Group B) VACC INE SHARED DECISION-MAKING Aged Out No longer eligibl e based on patient's age to complete this topic MENINGOCOCCAL GROUPS A/C/Y/W VACCINE Aged Out No longer eligible b ased on patient's age to complete this topic Insurance [facility] SELF PAY NO INSURANCE Member Subscriber Plan / Payer (Ef fective for All Dates) Name:Gris Acosta Member ID:Not on file Relation to Subscriber:Not on file Name:GRIS ACOSTA Subscriber ID:Not on file (Home) Address: [address] [place] [address] Payer ID:Not on file Group ID:Not on file Type:Self Pay Address: [place], [place] [facility] Advance Directives Documents on File Type Date Recorded 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
== END 2024-08-16 08:04 | disposition home or self-care (01) ==
PROVIDERS: PCP Family Medicine; Visit Provider Obstetrics & Gynecology
DX: Z12.31 Encounter for screening mammogram for malignant neoplasm of breast (principal)
CPT/HCPCS: 77063; 77067

== ENCOUNTER 2025-03-06 07:29 | Outpatient (CLI) | payer MEDICARE, SELFPAY ==
--- OUTSIDE RECORDS SUMMARY | 2025-03-06 07:38 | XMS_ITS | Clinical Summary ---
Author Organization [facility] Address [address] [place] [address] Care Team Providers Care Brush Filler Hand Name Role Phone Polo Busby MD Primary Care Provider + Source Comments [facility],non-[facility] Affiliates and Associated Physician Practices is amultiple site organization consisting of ambulatory clinics and hospital sitesin [place], [place], [place] and [place]. This disclosure is being madepursuant to the Care Everywhere program and may not contain all information available regarding this patient. Last updated 18.[facility] [employer] Allergies Active Allergy Reactions Criticality Noted Date Comments Tetracycline Nausea and/or Vomiting 08/13/2015 Medications * Be aware that medications may not be up to date on this document. Alwaysverify current medications with the patient. [place]-3 Fatty Acids (FISH OIL DELAYED RELEASE) 1000 [...] 12:41 PM CDT Height 172.7 cm (5' 8) 08/28/2015 12:41 PM CDT Body Mass Index 32.69 08/28/2015 12:41 PM CDT Plan of Treatment Health Maintenance Due Date Last Done Comments BONE DENSITY TESTING 1959 COLOGUARD (AGES 45-75) - COL ON CA SCREENING 1959 COLON MONITORING 1959 COLONOSCOPY - COLON CA SCREENING 1959 CT COLONOGRAPHY - COLON CA SCREENING 1959 Colorectal Cancer Screening 1959 FIT - COLON CA SCREENING 1959 FLEX SIG - COLON CA SCREENING 1959 LIPID TESTING 1959 MAMMOGRAM 1959 HIV SCREENING 11/26/1974 HEPATITIS C SCREENING 11/22/1977 DTAP/TDAP/TD VACCINES (1 - Tdap) 11/26/1978 PAP SMEAR 11/26/1980 PNEUMOCOCCAL VACCINE 50+ (1 of 1 - PCV) 11/26/2009 ZOSTER VACCINE (1 of 2) 11/26/2009 DEPRESSION SCREENING 04/27/2024 COVID-19 VACCINE (2023-2 5 season) 2024 INFLUENZA VACCINE (#1) 2024 Respiratory Syncytial Virus (RSV) Vaccine Pt: [...] patient's age to complete this topic Insurance Member Subscriber Plan / Payer (Ef fective for All Dates) Name:Gris Acosta Member ID:Not on file Relation to Subscriber:Not on file Name:GRIS ACOSTA Subscriber ID:Not on file (Home) Address: [facility] [place] [address] Payer ID:Not on file Group ID:Not on file Type:Self Pay Address: [facility] [address] [facility] Advance Directives Documents on File Type Date Recorded 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
[2025-03-06 08:26] LABS: Hemoglobin A1C 5.6 % (<5.7)
[2025-03-06 08:28] LABS: Alanine Aminotransferase 25 U/L (6-35); Albumin Level 4.0 g/dL (3.5-5.1); Alkaline Phosphatase 78 U/L (38-126); Anion Gap 5 mmol/L (4-12); Aspartate Amino Transferase 25 U/L (14-36); Bilirubin,Total 0.5 mg/dL (0.2-1.3); Blood Urea Nitrogen 20 mg/dL (7-17); Calcium 8.8 mg/dL (8.4-10.2); Carbon Dioxide 27 mmol/L (22-30); Chloride 104 mmol/L (98-107); Cholesterol 186 mg/dL (0-200); Estimated Glomerular Filt Rate > 60; Glucose 95 mg/dL (65-110); HDL Direct 56 mg/dL; Potassium 4.5 mmol/L (3.4-5.0); Sodium 136 mmol/L (137-145); Total Protein 7.2 g/dL (6.3-8.2); Triglycerides 137 mg/dL (<150)
[2025-03-06 08:45] LABS: Free T4 Free Thyroxine 0.99 ng/dL (0.78-2.19)
[2025-03-06 09:04] LABS: Thyroid Stimulating Hormone 3.500 uIU/mL (0.465-4.680)
== END 2025-03-06 07:30 | disposition home or self-care (01) ==
PROVIDERS: PCP Family Medicine; Visit Provider Student in an Organized Health Care Education/Training Program
DX: K21.9 Gastro-esophageal reflux disease without esophagitis (principal); E66.9 Obesity, unspecified; R53.83 Other fatigue; E55.9 Vitamin D deficiency, unspecified; Z13.1 Encounter for screening for diabetes mellitus; Z13.220 Encounter for screening for lipoid disorders
CPT/HCPCS: 36415; 80053; 80061; 82306; 83036; 84439; 84443